=== PATIENT | female | born 1995 | race African-American/Black ===

== ENCOUNTER 2020-03-11 20:30 | Emergency (ER) | payer OTHER, SELFPAY ==
[2020-03-11 22:18] LABS: #Basophils 0.1 thou/uL (0.0-0.2); #Eosinphils 0.1 thou/uL (0.0-0.7); #Lymphocytes 2.7 thou/uL (1.20-3.40); #Monocytes 0.3 thou/uL (0.11-0.59); #Neutrophils 4.7 thou/uL (1.40-6.50); %Basophils 1.1 % (0.0-1.0); %Eosinophils 1.5 % (0.0-10.0); %Monocytes 4.2 % (0.0-10.0); %Neutrophils 59.3 % (42.0-75.0); Hemoglobin 11.5 g/dL (12.0-16.0); Mean Corpuscular HGB CONC 33.9 g/dL (32.0-36.0); Mean Corpuscular Hemoglobin 33.3 pg (27.0-31.0); Mean Corpuscular Volume 98.2 fL (78.0-98.0); Mean Platelet Volume 7.1 fL (7.4-10.4); Platelet Count 241 thou/uL (130-400); RBC Distribution Width 11.2 % (11.5-14.5); Red Blood Cell (RBC) Count 3.46 mill/uL (4.20-5.40); White Blood Cell (WBC) Count 7.9 thou/uL (4.8-10.8)
[2020-03-11 22:39] LABS: Bacteria/HPF None Seen HPF (None Seen); Bilirubin Negative (Negative); Blood, Urine Negative (Negative); Calcium Oxalate Crystals Rare HPF (None Seen); Clarity Clear (Clear); Glucose, Urine (Dipstick) Normal (Negative); Leukocyte 250 Leu/uL (Negative); Mucous/LPF Rare LPF (<2+); Nitrite Negative (Negative); Protein, Urine (Dipstick) 20 mg/dL (Neg-Trace); RBC/HPF 0-3 HPF (0-3)
[2020-03-11 22:47] LABS: Pregnancy Test - Urine (BHCG) POSITIVE (Negative)
[2020-03-11 22:48] LABS: Pregu Control Background? CLEAR/WHITE (CLR/WHITE); Pregu Control Bar Appear? YES (CONTROL BAR); Specific Gravity 1.029 (1.002-1.036)
--- NOTE | 2020-03-11 23:27 | ULT ---
US Pelvic Transvag W Doppler HISTORY: Vaginal spotting COMPARISON: None. FINDINGS: A single live intrauterine gestation is seen with measurements corresponding to an estimated gestatio nal age of 13 weeks 4 days and LINA at 09/12/2020. measurements are as follows: BPD: 2.32 cm, 13 weeks 6 days HC: 8.85 cm, 14 weeks 0 days AC: 7.15 cm, 13 weeks 5 days FL: 1.08 cm, 13 weeks 1 day heart rate measures 153 bpm. Amniotic fluid appears adequate. Placenta is probably anterior. Th ere is a small hypoechoic area in the right fundus, suspicious for a subchorionic hemorrhage. The ovaries have a normal appearance. No free fluid is seen in the cul-de-sac. IMPRESSION: 1. Single live IUP of 13 weeks 4 days estimated gestational age and 09/12/2020. 2.Probable subchronic hemorrhage.
== END 2020-03-11 23:53 | disposition home or self-care (01) ==
LOC: ERS 20:30
DX: O20.0 Threatened abortion (principal); O20.8 Other hemorrhage in early pregnancy; Z3A.13 13 weeks gestation of pregnancy
CPT/HCPCS: 36415; 76856; 81003; 81015; 81025; 84702; 85025; 86900; 86901

== ENCOUNTER 2020-05-12 11:23 | Emergency (ER) | payer OTHER ==
[2020-05-13 16:08] LABS: SARS-CoV-2 MS2 Positive; SARS-CoV-2 N Gene Positive; SARS-CoV-2 S Gene Positive; SARS-CoV-2 orf1ab Positive
== END 2020-05-12 11:43 | disposition home or self-care (01) ==
LOC: ERS 11:23
DX: O98.519 Other viral diseases complicating pregnancy, unspecified trimester (principal); U07.1 COVID-19
CPT/HCPCS: 87635; 99283; U0003